=== PATIENT | male | born 1940 | race Hispanic/Latino ===

== ENCOUNTER 2020-05-10 00:25 | Emergency (ER) | payer OTHER ==
[2020-05-10] MEDS ORDERED: EPINEPHrine 1 MG/10 ML SYR IV ONE (00:26)
[2020-05-10] MEDS ORDERED: ATROPINE SULF 1 MG/10 ML SYR IV ONE ×2 (00:26→01:06)
[2020-05-10] MEDS ORDERED: Caclcium Chloride 10% INJ SYR IV ONE (00:26)
--- OUTSIDE RECORDS SUMMARY | 2020-05-10 00:36 | XMS REPORT | Continuity of Care Document ---
:1940 Author Organization [facility] t Address [address] [place] [address] Care Team Providers Name Role Phone Sheela Rosen MD Primary Care Physician Sheela Rosen MD Attending Clinician Shadi YU, Yari Tyler Attending Clinician Unavailable Johnathan HENRIQUEZ Attending Clinician Unavailable MARY WELLER Attending Clinician Unavailable Jericho MARQUEZ, Didier Attending Clinician Qi Champion MD Attending Clinician Anneliese Tellez MD Attending Clinician Jimmy Alvares MD Attending Clinician KELIN Admitting Clinician Unavailable Payers Payer Name Policy Type Policy Effective Date Expiration Date Sour ce Number HUMANA [id number] 2018 [place] MEDICAREHUMANA [facility] 00:00:00 Method ist GOLD PLUS [id number]/-PresentHMO Problems Condition Condition Condition Status Onset Resolution Last Treating Co mments Source Name Details Category Date Date Treatment Clinician Date Intractabl Intractabl Disease Active 2019-03 [place] e pain e pain 0-06 [facility] 00:00: st 00 Debility Debility Disease Active 2019-03 [place] 006 [facility] 00:00: st 00 Hyperlipid Hyperlipid Disease Active H [place] gabriel 11-24 Methodi 00:00: st 00 At low At low Disease Active [place] risk for risk for 07-02 Method i 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 07-02 [facility] cataract cataract 00:00: st of both of both 00 eyes eyes Prostate Prostate Disease Active [place] cancer cancer 11-01 [facility] metastatic metastatic 00:00: st to to 00 intraabdom intraabdom inal lymph inal lymph node node Allergies, Adverse Reactions, Alerts Allergy Allergy Status Severity Reaction(s) Onset Inactive Treating Comm ents Source Name Type Date Date Clinician Influenz Propensi Active Other (See Makes him [place] a Virus ty to Comments) 11-24 ill Method i Vaccines adverse 00:00: st reaction 00 s to drug No Known DA Active [facility] Allergie 11-23 [place] s 00:00: [facility] 00 are [place] Other Propensi Active Anaphylaxis Steroids H edx ty to 714 Methodi adverse 00:00: st reaction 00 s Methylpr Propensi Active Anaphylaxis H dex ednisolo ty to 11-28 Methodi ne adverse 00:00: st reaction 00 s to drug Family History Family Member Diagnosis Comments Start Date Stop Date Source Natural father Cancer [facility] thodist Natural mother Cancer [facility]odist Social History Social Habit Start Date Stop Date Quantity Comments Source History [facility] Meth odist Alcohol Std Drinks History [facility] Meth odist Alcohol Binge Sex Assigned At [facility] ethodist Tobacco use and 2020-02-24 2020-02-24 Never used [facility] ethodist exposure 00:00:00 00:00:00 Alcohol intake 2020-02-24 2020-02-24 Lifetime [facility] thodist 00:00:00 00:00:00 non-drinker (finding) History [facility] 2018-09-20 2018-09-20 1 [place] Meth odist Alcohol Frequency 00:00:00 00:00:00 Smoking Status Start Date Stop Date Source Former smoker 2020-02-24 00:00:00 2020-02-24 00:00:00 Aren Muslim Medications Ordered Filled Start Stop Current Ordering Indication Dosage Frequency Signature Comments Components Source Medication Medication Date Date Medication? Clinician (SIG) Name Name olmesartan 2019-03- Yes 20mg QD Take 1 [place] (Benicar) 04-26 tablet (20 Met hodi 20 MG 00:00: 23:59 mg total) st tablet 00 :00 by mouth daily. Linzess 72 2019-03 Yes Younger mcg capsule 2-16 Methodi 00:00: st 00 Xtandi 40 2019-03 Yes [place] mg chemo 2-03 [facility] capsule 00:00: st 00 ondansetron 2019-03 Yes DIS 1 T ON Younger ODT 1-18 THE TONGUE Methodi (ZOFRAN-ODT 00:00: Q 8 H PRN s t ) 8 MG 00 disintegrat ing tablet ibuprofen 2019-03 Yes 800mg Take 800 [address] (ADVIL) 800 1-11 mg by Methodi MG tablet 00:00: mouth. st 00 leuprolide, 2019-03 Yes Q180D Inject Doyle ston 6 month, 0-09 under the Method i (ELIGARD) 19:20: skin every st 45 mg (6 34 6 (six) month) months. injection lidocaine 2019-03- No 1{patch Q24H Place 1 [place] (LIDODERM) 0 11-07 } patch on Meth haile 5 % 00:00: 23:[address] 00 :00 daily for 30 days. Remove & Discard patch within 12 hours or as directed by HYDROcodone 2019-03 2020- No acute pain 1{tbl} Q6H Take 1 Younger -acetaminop 0-08 10-13 tablet by Me chanda hawkins (NORCO) 00:00: 23:[address] 5-325 mg 00 :00 every 6 per tablet (six) hours as needed for moderate pain for up to 5 days .acute pain. Max Daily Amount: 4 tablets amLODIPine Yes 10mg QD Take 1 [place] (NORVASC) - tablet (10 [place] 10 mg 00:00: mg total) st tablet 00 by mouth daily. amLODIPine 2019- No 10mg QD Take 1 [place] (NORVASC) 11-24 tablet (10 Met hodi 10 mg 00:00: 00:00 mg total) st tablet 00 :00 by mouth daily. amLODIPine 2.5mg QD Take 1 Doyle bello (NORVASC) 11-10 tablet Methodi 2.5 mg 00:00: 00:00 (2.[address] tablet 00 :00 total) by mouth daily. oxybutynin Yes TK 1 T PO Vikas cardona (DITROPAN) 10-08 Q 8 H PRN Meth ha[place] 5 MG tablet 00:00: FOR st 00 BLADDER SPASMS Immunizations Ordered Immunization Filled Immunization Date Status Commen ts Source Name Name Pneumococcal 2015-11-08 Completed [place] Polysaccharide 00:00:00 Muslim Pneumococcal 2014-05-02 Completed [place] Conjugate 13-Valent 00:00:00 Metho dist Vital Signs Vital Name Observation Time Observation Value Comments Source Body height 2020-02-24 09:27:00 162.6 cm Aren Kumar Body weight 2020-02-24 09:27:00 64.411 kg Aren Kumar BMI 2020-02-24 09:27:00 24.37 kg/m2 Younger Muslim Oxygen saturation in 2020-02-24 09:27:00 100 /min Younger Muslim Arterial blood by Pulse oximetry Systolic blood 2020-02-24 09:27:00 180 mm[Hg] Antonietta n Muslim pressure Diastolic blood 2020-02-24 09:27:00 54 mm[Hg] Josselyn on Muslim pressure Heart rate 2020-02-24 09:27:00 66 /min Aren Kumar Body temperature 2020-02-24 09:27:00 36 Rosanna Marilou ton Muslim Respiratory rate 2019-12-17 16:39:41 18 /min Marilou willingham Muslim Procedures Procedure Date / Time Performed Performing Clinician Sourc e PSA, TOTAL AND FREE 2020-01-28 00:00:00 Sheela Rosen on Muslim MRI CERVICAL SPINE W WO 2019-12-17 12:37:30 Vikas Summers CONTRAST Angy Edgar BASIC METABOLIC PANEL 2019-12-17 04:55:00 Marilou Summers HC COMPLETE BLD COUNT 2019-12-17 04:55:00 Marilou Summers W/AUTO DIFF Iadara Tala ESTIMATED GFR 2019-12-17 04:55:00 Aren Summers Me thodist Iadara Tala MRI THORACIC SPINE W WO 2019-12-16 17:29:26 Vikas Summers CONTRAST Iadara Tala MRI LUMBAR SPINE W WO 2019-12-16 17:29:02 Marilou Summers Muslim CONTRAST Iadara Tala TESTOSTERONE 2019-12-16 11:22:00 Alonzo Alvares PROSTATE SPECIFIC ANTIGEN 2019-12-16 11:22:00 Alonzo Alvares Muslim BASIC METABOLIC PANEL 2019-12-16 05:43:00 Marilou Summers Muslim Iadara Tala HC COMPLETE BLD COUNT 2019-12-16 05:43:00 Marilou Summers Muslim W/AUTO DIFF Iadara Tala ESTIMATED GFR 2019-12-16 05:43:00 Aren Summers Az thodist Iadara Tala HC COMPLETE BLD COUNT 2019-12-15 04:51:00 Phyllis Taylor W/AUTO DIFF BASIC METABOLIC PANEL 2019-12-15 04:51:00 Phyllis Taylor Muslim ESTIMATED GFR 2019-12-15 04:51:00 Phyllis Taylor LACTIC ACID LEVEL, SEPSIS 2019-12-14 20:45:00 Enrique Echavarria - NOW AND REPEAT 2X EVERY 3 HOURS COVID-19 QUALITATIVE PCR 2019-12-14 19:07:00 Enrique Echavarria LACTIC ACID LEVEL, SEPSIS 2019-12-14 18:50:00 Enrique Echavarria - NOW AND REPEAT 2X EVERY [address] LUMBAR SPINE W 2019-12-14 16:21:11 Enrique Echavarria CONTRAST URINALYSIS SCREEN AND 2019-12-14 15:38:00 Enrique Echavarria MICROSCOPY, WITH REFLEX TO CULTURE HC COMPLETE BLD COUNT 2019-12-14 15:07:00 Enrique Echavarria W/AUTO DIFF COMPREHENSIVE METABOLIC 2019-12-14 15:07:00 Enrique Echavarria PANEL LACTIC ACID LEVEL, SEPSIS 2019-12-14 15:07:00 Enrique Echavarria - NOW AND REPEAT 2X EVERY 3 HOURS ESTIMATED GFR 2019-12-14 15:07:00 Enrique Echavarria Az thodist CT ABDOMEN PELVIS W 2019-12-07 12:47:51 Alonzo Alvaresist CONTRAST LIPID PANEL 2019-11-25 09:22:00 Sheela Rosen ethodi HEMOGLOBIN A1C 2019-11-25 09:20:00 Sheela Rosen ethodist COMPREHENSIVE METABOLIC 2019-11-11 12:16:00 Sheela Rosen PANEL CBC WITH PLATELET AND 2019-11-11 12:16:00 Sheela Rosen DIFFERENTIAL Plan of Care Planned Activity Planned Date Details Comments Source Future Scheduled 2020-11-10 SHINGLES VACCINES Postponed from [facility] Muslim Test 00:00:00 (#1) [code = 07/24/1989 SHINGLES VACCINES (Insurance / (#1)] Financial) Future Scheduled 2020-06-07 INFLUENZA VACCINE Postponed from [employer] ton Muslim Test 00:00:00 [code = INFLUENZA 10/09/2019 VACCINE] (Patient Refused) Future Scheduled 1956 COVID-19 VACCINE [place] Muslim Test 00:00:00 (1 of 2) [code = COVID-19 VACCINE (1 of 2)] Encounters Start End Encounter Admission Attending Care Care Encounter Source Date/Time Date/Time Type Type Clinicians Facility Department ID 2020-02-24 2020-02-24 Outpatient ALVERTO [facility] [id number] [place] 00:00:00 00:00:00 SHEELA [address] 2019-12-20 2019-12-20 Outpatient MARY [facility] [id number] [place] 00:00:00 00:00:00 JANEE, [address] 2019-12-14 2019-12-17 Outpatient MARY [facility] [id number] [place] 00:00:00 00:00:00 JANEE, [address] 2019-12-07 2019-12-07 Outpatient PRAMOD [facility] [id number] [place] 00:00:00 00:00:00 ALONZO [address] 2019-11-25 2019-11-25 Outpatient ALVERTO [facility] [id number] [place] 00:00:00 00:00:00 SHEELA [address] 2019-11-11 2019-11-11 Outpatient ALVERTO [facility] [id number] [place] 00:00:00 00:00:00 SHEELA Fay Method i st Results Test Description Test Time Test Comments Results Result Sourc e Comments MRI Cervical [facility] [place] Spine W Wo [address] Contrast 13:43:27 - 12/17/2019 1:46 PM CDTEXAMINATION: MRI CERVICAL SPINE W WO CONTRASTCLINICAL HISTORY: possible infection cancerCOMPARISON: NoneTECHNIQUE: Multiplanar multisequence MRI examination was performed of the cervical spine with and without IV contrast.FINDINGS:Ali gnment is within normal limits. Vertebral body and disc heights are maintained. No suspicious osseous lesion or marrow edema. No cord signal identified. No pathologic enhancement.C1-C2: No significant spinal canal stenosis.C2-C3: No significant posterior disc disease or spinal canal stenosis. Patent bilateral neural foramina.C3-C4: No significant posterior disc disease or spinal canal stenosis. Mild left neural foraminal narrowing secondary to facet hypertrophy. Patent right neural foramen.C4-C5: No significant posterior disc disease or spinal canal stenosis. Patent bilateral neural foramina.C5-C6: No significant posterior disc disease or spinal canal stenosis. Patent bilateral neural foramina.C6-C7: No significant posterior disc disease or spinal canal stenosis. Patent bilateral neural foramina.C7-T1: No significant posterior disc disease or spinal canal stenosis. Patent bilateral neural foramina.No significant posterior disc disease, spinal canal or neural foraminal stenosis at other visualized levels.IMPRESSION: No evidence of infection or metastasis. No significant spinal canal or neural foraminal narrowing.[id number] Basic metabolic panel 2019-12-17 05:34:25 Test Item Value Reference Range Interpretation Comme nts Sodium (test code = 2951-2) 140 See_Comment [Automated message] The system which generated this result transmitted ref erence range: 135 - 148 mEq/L . The reference range was not u sed to interpret this result as normal/abnormal. Potassium (test code = 4.6 See_Comment [Aut omated message] The system 2823-3) which generated this result transmitted ref erence range: 3.5 - 5.0 mEq/L . The reference range was not u sed to interpret this result as normal/abnormal. Chloride (test code = 5-0) 103 See_Comment [Automated message] The system which generated this result transmitted ref erence range: 98 - 112 mEq/L. Th e reference range was not u sed to interpret this result as normal/abnormal. CO2 (test code = 2027-9) 26 See_Comment [A utomated message] The system which generated this result transmitted ref erence range: 24 - 31 mEq/L. The reference range was not used to interpret this result as drew l/abnormal. Anion gap (test code = 11 See_Comment [Aut omated message] The system 20967-3) which generated this result transmitted ref erence range: 7 - 15 mEq/L. The reference range was not used to interpret this result as drew l/abnormal. BUN (test code = 3094-0) 30 mg/dL 8-23 H Creatinine (test code = 0.94 mg/dL 0.7-1.2 2160-0) Glucose (test code = 2345-7) 100 mg/dL 65-99 H Calcium (test code = 38343-9) 8.9 mg/dL 8.8-10.2 Lab Interpretation (test code Abnormal = 52678-3) Younger MethodistEstimated [id number] 05:34:24 Test Item Value Reference Range Interpretation Comments Estimated GFR (test 76 mL/min/1.73 m2 [facility] Units code = 5488) InterpretationG 1 >=90 Normal or highG2 60-89 Mildly xnejhdvpnK6s 45-59 Mildly to mode rately iyttsotqfA7n 30-44 Moderately to severely decreasedG4 15-29 Severely decre asedG5 <15 Kidn ey failureThe eGFR was calculated cuauhtemoc lazo the Chronic Kidney Disease Epidemiology Co llaboration (CKD-EPI) equat ion. Interpretation is based on recommendations of the National Kidney Foundation-Kidn ey Disease Outcomes Qualit y Initiative (NKF-KDOQI) pub lished in 2014. Younger MethodistCBC with platelet and [id number] 05:03:50 Test Item Value Reference Range Interpretation Comments WBC (test code = 5.71 See_Comment [Automated message] 70545-6) The system [employer] generated this result transmit alen reference range : 4.50 - 11.00 k/ uL. The reference r dwight was not used to interpret this result as normal/abnormal . RBC (test code = 3.45 m/uL 4.4-6 L 92320-8) HGB (test code = 718-7) 10.8 g/dL 14-18 L HCT (test code = 4544-3) 31.2 % 41-51 L MCV (test code = 787-2) 90.4 fL 82-100 MCH (test code = 785-6) 31.3 pg 27-34 MCHC (test code = 786-4) 34.6 g/dL 31-37 RDW - SD (test code = 41.7 fL 37-55 27832-4) MPV (test code = 9.1 fL 8.8-13.2 28243-4) Platelet count (test 163 See_Comment [Autom ated message] code = 19370-9) The system [employer] generated this result transmit alen reference range : 150 - 400 k/uL. The reference range was not used to interpret this result as normal/abnormal . Nucleated RBC (test code 0.00 See_Comment [A utomated message] = 78484-9) The system [employer] generated this result transmit alen reference range : /100 WBC. The reference range was not used to interpret this result as normal/abnormal . Neutrophils (test code = 48.1 % 39-69 88769-7) Lymphocytes (test code = 34.5 % 25-45 87421-2) Monocytes (test code = 10.2 % 0-10 H 84262-6) Eosinophils (test code = 6.1 % 0-5 H 18349-7) Basophils (test code = 0.9 % 0-1 34239-5) Immature granulocytes 0.2 % 0-1 "Immat ure (test code = 04407-3) granul ocytes" (promyelocytes, myelocytes, metamyelocytes) Lab Interpretation (test Abnormal code = 88885-2) [place] MethodistProstate specific [id number] 20:12:33 Test Item Value Reference Range Interpretation Comments PSA (test code = 225.7 ng/mL 0-4 H The KELSEY 8 000 PSA 6737-1) immunoassay was used. Results obtaine d with different assay methods or kits should not be u sed interchangeably and may be differen t. Lab Interpretation Abnormal (test code = 14454-8) [facility] Lumbar Spine W Wo [id number] 17:54:53Hm Interface, Radiology Results 12/16/2019 5:58 PM CDTEXAMINATION: MRI LUMBAR SPINE W WOCONTRASTCLINICAL HISTORY: Back pain cancer or infection suspectedCOMPARISON: CT lumbar spine datedOctober 2019TECHNIQUE: Multiplanar multisequence pre and post contrast enhanced examination was performed of the Lumbar spine.FINDINGS:Numbering assumes that the last visualized functional disc to be L5-S1.There is normal lordosis. There is a inferior endplate pathologic fracture at L2 into a sclerotic bone lesion noted at L2 as seen on prior CT. There is a diffuse infiltrative lesion not much of the L2 vertebral body with enhancement and edema on postcontrast imaging. The lesion occupies 2.6 cm of AP dimension of the vertebral body centered towards the right of midline measuring 2.5 cm in transverse dimension and expands entire superior inferior length of the vertebral body. Another metastaticlesion is noted along the anterior inferior aspect of the L1 vertebral body slightly to the left of midline measuring 2 cm x 2 cm. There is a second focus of sclerosis in the right inferior anterior pedicle of L1. No other sclerotic metastatic lesions are identified in the lumbar spine.There are some areas of mild heterogenicity in the sacrum at S2 and within the sacroiliac consistent with sacral metastatic disease.Scattered cysts are noted in the right kidney. There are also some scattered periaortic lymph nodes which although most are not significantly enlarged in size but are rounded appearance concerning for metastatic disease on prior CT abdomen and pelvis. One of the lymph nodes is slightly enlarged in the left iliac chain which has a rounded appearance measuring 14 mm.The partially visualized spinal cord and the conus are unremarkable. Axial images through the disc spaces demonstrate the following:T12-L1: No significant posterior disc disease, spinal canal, lateral recess or neural foraminal stenosis.L1-L2: No significant posterior disc disease, spinal canal, lateral recess or neural for aminal stenosis.L2-L3: There is mild disc bulge without stenosis.L3-L4: There is minimal disc bulge with minimal narrowing of the inferior foramina. The canal is widely patent.L4-L5: There is mild discbulge with minimal narrowing of the inferior foramina. The canal is widely patent.L5-S1: No significant posterior disc disease, spinal canal, lateral recess or neural foraminal stenosis.Other than the areas of sclerosis in the right sacrum no other significant abnormalities identified.IMPRESSION: Findings confirm metastatic disease in the spine most prominent at L2 with there is a focal pathologic Schmorl's node into the center of the lesion. Other metastatic lesions at L1, S2 and the right sacral ala are also present. These are presumed to be prosthetic metastatic lesions in the patient with history of prostate cancer.Pathologic adenopathy is better appreciated on prior CT abdomen and pelvis withsome round lymph nodes in the periaortic region in a slightly enlarged lymph node in the left iliac chain region.HMRM-WPHYJWPHouston MethodistMRI Thoracic Spine W Wo [id number] 17:52:54Hm Interface, Radiology Results 12/16/2019 5:55 PM CDTEXAMINATION: MRI THORACIC SPINE W WO CONTRASTCLINICAL HISTORY: Bone neoplasm T-spine check for local recurrenceCOMPARISON: NoneTECHNIQUE: Multiplanar multisequence pre and post contrast enhanced examination was performed of the thoracic spine.FINDINGS:No vertebral fracture. No subluxation. T1 hypointense and T2 hyperintense metastasis involving the superior endplate of T10 measuring approximately 1.4 cm, involving the right pedicleand transverse process and bilateral lamina and spinous process of T10, inferior endplate of L1 measuring 1.6 cm, and involving the vertebral body of L2 measuring 2.5 cm with pathologic mild compression deformity. No other metastasis of the thoracic spine or visualized upper lumbar spine are identified..And sagittal sequences, there is elevated T2 signal of the lower cervical spinal cord, which is suspected to be artifactual. No abnormal enhancement.Hemangioma of the T7 vertebral body.No significantposterior disc disease, spinal canal, subarticular zone, or neural foraminal stenosis throughout thethoracic spine.IMPRESSION: 1. Metastasis involving T10, L1, and L2 as detailed above. There is a mild compression deformity of the inferior endplate of L2 which is pathologic.2. Possible elevated T2 signal of the lower cervical spinal cord, though this is suspected to be artifactual. No abnormal enhancement. Recommend MRI of the cervical spine with and without contrast for further assessment.3. No significant spinal canal or neural foraminal stenosis.Findings were discussed with and acknowledged by AIMEE Connors at 12/16/2019 5:52 PM who verbalized understanding. [facility]-[id number] 17:37:11 Test Item Value Reference Range Interpretation Comments Testosterone (test code = 2986-8) <10 193-740 L Lab Interpretation (test code = Abnormal 60707-4) [place] MethodistCOVID-19 qualitative [id number] 06:41:18 Test Item Value Reference Range Interpretation Comments Interpretation (test Negative results do code = 4158452) not preclude 2019-nCoV infection and should not be used as the sole basis for treatment or other patient management decisions. Negative results must be combined with clinical observations, patient history, and epidemiological information. COVID-19 qualitative Not-Detected Not-Detected PCR result (test code = 85806-2) COVID-19 qualitative See link below for C ase Number: PCR (test code = PDF Lab Report [id number]) [place] MethodistLactic acid level, SEPSIS - Now and repeat 2x every 3 hours 2019-12-14 21:13:57 Test Item Value Reference Range Interpretation Comments Lactic acid (test code = 73814-5) 1.5 mmol/L 0.5-2.2 [place] MethodistCT Lumbar Spine W [id number] 16:36:14Hm Interface, Radiology Results 12/14/2019 4:39 PM CDTEXAMINATION: CT LUMBAR SPINE W CONTRASTCLINICAL HISTORY: acute on chronic lumbar back pain hx of mets from prostate cancerCOMPARISON:CT abdomen pelvis 12/07/2019, 04/19/2019.TECHNIQUE: Axial noncontrast enhanced images of lumbar spine was performed with coronal sagittal reconstruction algorithms. CT imaging was performed with iterative reconstruction technique and/or automated exposure control to reduce radiation dose.FINDINGS:There are 5 non-rib bearing lumbar type vertebrae, the lowest labeled L5 in this report as identified by the lumbosacral angle and iliolumbar ligaments. There is similar appearing sclerosis of the L1 and L2 vertebral bodies when compared with the prior CT from 12/07/2019, however is new when compared to more remote prior from 04/19/2019. No displaced fractures identified. Vertebral body heights are preserved.Alignment is within normal limits. No subluxation. Limited visualization of the soft tissues revealssimilar bulky necrotic lymphadenopathy along the left pelvic sidewall and right retroperitoneum. Forexample the largest left pelvic sidewall mass measures 5.0 x 4.0 cm in axial dimensions and the right retroperitoneal lymph node measures 4.1 x 3.7 cm. No hydronephrosis.Axial images through the disc spaces demonstrate the following:L1-L2: No significant posterior disc disease, spinal canal, subarticul ar zone, or neural foraminal stenosis.L2-L3: No significant posterior disc disease, spinal canal, subarticular zone, or neural foraminal stenosis.L3-L4: No significant posterior disc disease, spinal canal, subarticular zone, or neural foraminal stenosis.L4-L5: No significant posterior disc disease, spinal canal, subarticular zone, or neural foraminal stenosis.L5-S1: No significant posterior disc disease, spinal canal, subarticular zone, or neural foraminal stenosis.Evaluation of other visualized levels demonstrates no significant posterior disc disease, spinal canal, subarticular zone, or neural foraminal stenosis.IMPRESSION:1.Similar appearing subtle sclerosis of the L1 and L2 vertebral bodies when compared with the prior CT from 12/07/2019, but new when compared to more remote prior from 04/19/2019, highly suspicious for osseous metastatic disease. No pathologic fractures or spinal canal narrowing.2.Stable appearing bulky necrotic right retroperitoneal and left pelvic sidewall lymphadenopathy.[facility]-[id number] MethodistUrinalysis screen and microscopy, with reflex to [id number] 16:08:19 Test Item Value Reference Range Interpretation Comments Specimen site (test Clean catch code = 7726905) Color, UA (test code = Yellow 5778-6) Appearance, UA (test Clear code = 5767-9) Specific gravity, UA 1.017 1.001-1.035 (test code = 5811-5) pH, UA (test code = 7.0 5.0-8.5 5803-2) Protein, UA (test code 2+ Negative A = 37402-5) Glucose, UA (test code Negative Negative = 89425-8) Ketones, UA (test code Negative Negative = 2514-8) Bilirubin, UA (test Negative Negative code = 5770-3) Blood, UA (test code = Negative Negative 5794-3) Nitrite, UA (test code Negative Negative = 5802-4) Urobilinogen, UA (test <2.0 <2.0 code = 63110-1) Leukocyte esterase, UA Negative Negative (test code = 5799-2) WBC, UA (test code = 1 See_Comment [Autom ated 5821-4) message] The sy stem which generated this result transmitted reference range : 0 - 5 /HPF. The reference range was not used to interpret this result as normal/abnormal . RBC, UA (test code = 1 See_Comment [Autom ated 67017-5) message] The sy stem which generated this result transmitted reference range : 0 - 5 /HPF. The reference range was not used to interpret this result as normal/abnormal . Yeast, UA (test code = None seen 94206-6) Yeast with None seen pseudohyphae, UA (test code = 89271-3) Lab Interpretation Abnormal (test code = 56748-6) [facility] [id number] 15:38:41 Test Item Value Reference Range Interpretation Comments Sodium (test code = 135 See_Comment [Automa alen message] 8881-2) The system [employer] generated this result transmit alen reference range : 135 - 148 mEq/L. Th e reference range was not used to interpret this result as normal/abnormal . Potassium (test code = 5.0 See_Comment [Aut omated message] 5553-3) The system [employer] generated this result transmit alen reference range : 3.5 - 5.0 mEq/L. Th e reference range was not used to interpret this result as normal/abnormal . Chloride (test code = 99 See_Comment [Auto mated message] 0) The system [employer] generated this result transmit alen reference range : 98 - 112 mEq/L. Th e reference range was not used to interpret this result as normal/abnormal . CO2 (test code = 26 See_Comment [Automated message] 2027-11) The system [employer] generated this result transmit alen reference range : 24 - 31 mEq/L. The reference range was not used to interpret this result as normal/abnormal . Anion gap (test code = 10 See_Comment [Aut omated message] 51303-5) The system [employer] generated this result transmit alen reference range : 7 - 15 mEq/L. The reference range was not used to interpret this result as normal/abnormal . BUN (test code = 29 mg/dL 8-23 H 3094-0) Creatinine (test code = 0.81 mg/dL 0.7-1.2 2160-0) Glucose (test code = 105 mg/dL 65-99 H 2345-7) Calcium (test code = 9.0 mg/dL 8.8-10.2 58381-5) Protein (test code = 6.9 g/dL 6.3-8.3 -[place] n 2885-2) 4.6-7.0 g/ dL1 week 4.4-7.6 g/dL7 months-1year 5.1-7.3 g/dL1 -2 years 5.6-7.5 g/dL>3 years 6.0-8.0 g/dL18- 150 6.3-8.3 g/dL Albumin (test code = 3.7 g/dL 3.5-5 1751-7) A/G ratio (test code = 1.2 0.7-3.8 1759-0) Alkaline phosphatase 89 U/L 40-129 (test code = 6768-6) AST (test code = 28 U/L 10-50 1920-8) ALT (test code = 21 U/L 5-50 1742-6) Total bilirubin (test <0.3 0-1.2 code = 1975-2) Lab Interpretation Abnormal (test code = 05919-1) [facility] Abdomen Pelvis W [id number] 13:09:39Hm Interface, Radiology Results 12/07/2019 1:12 PM CDTEXAMINATION: CT ABDOMEN PELVIS W CONTRASTCLINICAL HISTORY: C61 Malignant neoplasm of prostate, [id number]: Multiple axial images ofthe abdomen and pelvis were obtained following intravenous administration of iodinated contrast. Sagittal and coronal computerized reformatted images were also obtained.CT imaging was performed with iterative reconstruction technique and/or automated exposure control to reduce radiation dose.COMPARISON: None.FINDINGS:LUNG BASES:The lung bases are free of acute disease.ABDOMEN:Liver: The liver is normal. No focal mass.Gallbladder/Biliary: The gallbladder is normal. There is no evidence of intra or extrahepatic biliary ductal dilatation.Adrenal Glands: The adrenal glands are unremarkable.Spleen: Thespleen is not enlarged.Pancreas: The pancreas is unremarkable.Kidneys: Few right renal cysts measuring up to 2.5 cm.Bowel: No bowel obstruction or inflammatory changes. No CT evidence of appendicitis.Va scular: Calcification of the abdominal aorta is noted. No aneurysm.Nodes: Bilateral pelvic and iliacchain lymphadenopathy with interval increase in size of the nodes. For example, largest left pelvic node measures 4.0 x 4.9 cm compared to 2.6 x 3.0 cm previously. Some enlarged lymph nodes are new compared to prior exam, for example left periaortic lymph node below the level of the renal vasculature (series 3 image 50).Ascites/fluid collections: No ascites or fluid collections.Other: None.PELVIS:No mass, fluid collection or significant adenopathy. Heterogeneous and irregular appearing prostate is grossly stable compared to prior exam.MUSCULOSKELETAL: No suspicious osseous lesions. IMPRESSION: Interval progression of metastatic lymphadenopathy in the abdomen and pelvis as noted above.[id number] MethodistHemoglobin A1c 2019-11-26 06:36:00 Test Item Value Reference Range Interpretation Comments Hemoglobin A1C 5.2 See_Comment For the purpo se of (test code = screening for t he 4548-4) presence ofdiab etes: <5.7% Consistent with the absence of diabetes5.7-6.4 % Consistent with increased risk for diabetes (prediabetes)> or =6.5% Consiste nt with diabetes T his assay result is consistent with a decreased risko f diabetes. Curre ntly, no consensus ex ists regarding use ofhemoglobin A1 c for diagnosis of di abetes in children. According to [place] Diabetes Associ ation (ADA)guidelines , hemoglobin A1c <7.0% represents optimalcontrol in non- di abetic patients. Differentmetric s may apply to specif ic patient populat ions. Standards of Me dical Care in Diabetes(ADA). [Automated mess age] The system [employer] generated this result transmitted ref erence range: <5.7 % o f total Hgb. The reference range was not used to int erpret this result as normal/abnormal . KAYLA (test code = FASTING:YESFASTING KAYLA) : YES RAC (test code = Performing RAC) Organization Information: [id number] Address: [address] [place] [id number] Director: Colton Cao [place] [facility] [id number] 04:40:00 Test Item Value Reference Range Interpretation Comments Cholesterol, total 245 mg/dL <200 H (test code = 2093-3) HDL cholesterol 56 mg/dL See_Comment [Automated (test code = 2084-) message ] The system which generated this result transmitted reference range : > OR = 40. The reference range was not used to interpret this result as normal/abnormal . Triglycerides (test 101 mg/dL <150 code = 2571-8) LDL cholesterol 168 mg/dL (calc) H Reference ra nge: calculated (test <100 Desira ble code = 01147-6) range <100 m g/dL for primary prevention; <7 0 mg/dL for patients with C HD or diabetic patients with > or = 2 CHD risk factors. LDL-C is now calculated using the Sam-Angely calculation, which is a validated novel method providin g better accuracy than the Friedewald equation in the estimation of LDL-C. Sam S S et al. CHETAN. 2013;310(19): 7422-4613 (http://educati on .[employer] .com/faq/CDB087 ) Cholesterol/HDL 4.4 See_Comment [Automated ratio (test code = message] The 9830-1) system which generated this result transmitted reference range : <5.0 (calc). Th e reference range was not used to interpret this result as normal/abnormal . Non-HDL cholesterol 189 See_Comment H For yoseph ents with (test code = diabetes plus 1 88213-3) major ASCVD ris k factor, treatin g to a non-HDL-C goal of <100 mg/dL (LDL-C of <70 mg/dL) is considered a therapeutic option. [Automated message] The system which generated this result transmitted reference range : <130 mg/dL (calc). The reference range was not used to interpret this result as normal/abnormal . KAYLA (test code = FASTING:NOCOLLECTI KAYLA) ON KIT GIVEN TO PATIENT. PATIENT ADVISED TO RETURN.FASTING: NO RAC (test code = Performing RAC) Organization Information: Site ID: [id number] Name: [facility] Address: [address] [place] [id number] Director: Colton Cao Lab Interpretation Abnormal (test code = 65652-5) [place] [facility] [id number] 16:11:00 Test Item Value Reference Range Interpretation Comments SODIUM (test code 141 mmol/L 136-145 N = NA) POTASSIUM (test 4.2 MMOL/L 3.6-5.2 N code = K) CHLORIDE (test 105 MMOL/L 98-110 N code = CL) CARBON DIOXIDE 25 mEq/L 24-32 N (test code = CO2) GLUCOSE (test code 92 mg/dL 70-110 N = GLU) BLOOD UREA 21 mg/dL 7-18 H NITROGEN (test code = BUN) GLOMERULAR >=60 max >60 The estimated FILTRATION RATE estimate glomerular (test code = GFR) filtration rate is computed usingpatient ra ce, age (>18), sex, and serum creatinin e. If anyof the neede d data elements a re missing the Laboratory stepan ot compute an estimation of t he glomerular filtration rate . CREATININE (test 0.77 mg/dL 0.60-1.30 N code = CREAT) CALCIUM (test code 9.0 mg/dL 8.6-10.3 N = CA) BASIC METABOLIC [id number] 16:06:00 Test Item Value Reference Range Interpretation Comments SODIUM (test code = NA) 141 mmol/L 136-145 N POTASSIUM (test code = K) 4.2 MMOL/L 3.6-5.2 N CHLORIDE (test code = CL) 105 MMOL/L 98-110 N CARBON DIOXIDE (test code = CO2) 25 mEq/L 24-32 N GLUCOSE (test code = GLU) 92 mg/dL 70-110 N BLOOD UREA NITROGEN (test code = mg/dL 7-18 BUN) GLOMERULAR FILTRATION RATE (test >60 code = GFR) CREATININE (test code = CREAT) mg/dL 0.60-1.30 CALCIUM (test code = CA) 9.0 mg/dL 8.6-10.3 N PROTHROMBIN [id number] 15:27:00 Test Item Value Reference Range Interpretation Comments PROTHROMBIN TIME 11.7 SECONDS 9.5-12.9 N PATIENT (test code = PTP) INTERNATIONAL NORMAL 1.0 0.85-1.15 N The INR is to be used RATIO (test code = only for monitoring INR) ORAL ANTICOAGULANTTH ERAPY. Indicati on INR Value1. Prophylaxis/jennifer atment of: Venous Thrombosis, Pul monary Embolism 2.0 - 3.02. Preventi on of systemic emboli sm from: Tiss ue heart valves 2.0 - 3.0 Acute myocardial infa rction (to present systemic emboli sm)* 2.0 - 3.0 Valvular heart disease 2.0 - 3.0 Atrial fibrillation 2.0 - 3.03. Education Program Associate al prosthetic valv es (high risk) 2.5 - 3.5 * If oral anticoagulant t herapy is elected to preventrecurren t myocardial infa rction, an INR of 2.5-3 .5 isrecommended, consistent with Food and Drug Administrationr ecommen dations. CBC W/O [id number] 15:17:00 Test Item Value Reference Range Interpretation Comments WHITE BLOOD CELL (test code = WBC) 6.67 K/mm3 5.0-12.0 N RED BLOOD CELL (test code = RBC) 4.46 M/mm3 4.70-6.10 L HEMOGLOBIN (test code = HGB) 13.7 G/DL 14.0-18.0 L HEMATOCRIT (test code = HCT) 40.4 % 37.0-49.0 N MEAN CELL VOLUME (test code = MCV) 91 fL 80-94 N MEAN CELL HGB (test code = MCH) 30.7 PGM 27-31 N MEAN CELL HGB CONCENTRATION (test 33.9 G/DL 33-37 N code = MCHC) RED CELL DISTRIBUTION WIDTH (test 11.9 % 11.6-16.2 N code = RDW) PLATELET COUNT (test code = PLT) 189 K/mm3 130-400 N CHEMISTRY 8 [id number] 15:12:00 Test Item Value Reference Range Interpretation Comments SODIUM POC (test code = NAP) mmol/L 138-146 N POTASSIUM POC (test code = KP) mmol/L 3.5-4.9 N CHLORIDE POC (test code = CLP) mmol/L 98-109 CO2 POC (test code = CO2P) mmol/L 24-29 IONIZED CALCIUM POC (test code = mmol/L 1.10-1.32 N CAIP) GLUCOSE POC (test code = GLUP) MG/DL 70-105 N BUN POC (test code = BUNP) mg/dL 8-26 N CREATININE POC (test code = CREATP) mg/dL 0.6-1.3 N GLOMERULAR FILTRATION RATE POC (test 81 42-98 N code = GFRP) CHEMISTRY 8 [id number] 15:12:00 Test Item Value Reference Range Interpretation Comments SODIUM POC (test code = NAP) 142 mmol/L 138-146 N POTASSIUM POC (test code = KP) 4.3 mmol/L 3.5-4.9 N CHLORIDE POC (test code = CLP) 105 mmol/L 98-109 N CO2 POC (test code = CO2P) 26 mmol/L 24-29 N IONIZED CALCIUM POC (test code = 1.13 mmol/L 1.10-1.32 N CAIP) GLUCOSE POC (test code = GLUP) 94 MG/DL 70-105 N BUN POC (test code = BUNP) 20 mg/dL 8-26 N CREATININE POC (test code = 0.9 mg/dL 0.6-1.3 N CREATP) GLOMERULAR FILTRATION RATE POC 81 42-98 N (test code = GFRP)
[2020-05-10] MEDS ORDERED: NOREPINEPHRINE 4mg/D5W 250mL 4 MG/250 ML BAG IV ONE (00:45)
[2020-05-10] MEDS ORDERED: DOPAMINE/D5W 0 MG/0 ML BAG IV ONE (00:52)
[2020-05-10] MEDS ORDERED: PIPER/TAZO/NS 3.375gm 3.375 GM/100 ML BAG ONE (00:55)
[2020-05-10 00:57] LABS: Protime INR 0.95
[2020-05-10 00:58] LABS: Absolute Lymphocytes (CBC) 3.1 K/uL (0.7-4.9); Basophils % 0.6 % (0-1.3); Hematocrit 36.6 % (39.6-49.0); Lymphocytes % 27.1 % (15.3-44.8); MPV 8.2 fL (7.6-11.3); RBC Red Blood Cell Count 3.66 M/uL (4.33-5.43)
[2020-05-10] MEDS ORDERED: NA CHLORIDE 0.9% 1,000 ML ONE (01:02)
[2020-05-10] MEDS ORDERED: DOPAMINE/D5W 400 MG/250 ML BAG IV ONE (01:02)
[2020-05-10] MEDS ORDERED: FAMOTIDINE 20 MG/2 ML VIAL IV ONE (01:02)
[2020-05-10 01:21] LABS: ALT/SGPT 36 U/L (12-78); Albumin 2.7 g/dL (3.4-5.0); Alkaline Phosphatase 71 U/L (45-117); BUN Blood Urea Nitrogen 33 mg/dL (7-18); Bicarbonate 20 mmol/L (21-32); Bilirubin Direct < 0.1 mg/dL (0-0.2); Bilirubin Total 0.2 mg/dL (0.2-1.0); Glucose Level 278 mg/dL (74-106); NT PRO-BNP 4096 pg/mL (<450); Protein, Total 6.2 g/dL (6.4-8.2); Sodium Level 141 mmol/L (136-145)
[2020-05-10 01:22] LABS: AST/SGOT 26 U/L (15-37); Potassium 3.4 mmol/L (3.5-5.1)
[2020-05-10 01:25] LABS: Troponin (Emerg Dept Use Only) 0.57 ng/mL (0.0-0.045)
[2020-05-10] MEDS ORDERED: D5W 250 ML IV ONE (01:29)
[2020-05-10] MEDS ORDERED: EPINEPHrine 1 MG/10 ML SYR ONE (01:29)
--- NOTE | 2020-05-10 01:33 | ER ---
Nurse's Notes [facility] Name: Jeramy Schulz Age: 79 yrs Sex: Male : 1940 Arrival Date: 05/10/2020 Time: 00:32 Bed 3 Private MD: Diagnosis: Chest pain, unspecified;Dyspnea;Respiratory failure, unspecified;Cardiac arrest Presentation: 05/10 00:20 Chief complaint: EMS states: patient complaint of chest pain, and shortness of breath rr5 went to [facility]. he became unresponsive while en route we intubated him ET 7.5 23cm HR went down ketamine 200/IV, fentanyl 50mcg/IV, amiodarone 150mg bolus and 150mg, drip shock 70 joules twice for wide VTACH. HR went to junctional rhythm 55bpm, SPO2 100% BP on systolic 190-170's palpable radial pulse. 00:20 Coronavirus screen: Client denies travel out of the [place] in the last 14 days. Ebola rr5 Screen: Unable to complete the Ebola screening because:. Initial Sepsis Screen:. Onset of symptoms was May 10, 2020. 00:20 Method Of Arrival: EMS: [facility] rr5 00:20 Acuity: ROSITA 1 rr5 00:20 Care prior to arrival: Assisted ventilation, Oral intubation, Medication(s) given: rr5 magnesium 2 G/IV given by EMS IV initiated. 20 GA, in the left antecubital area, Oxygen administered. via AMBU bag. 00:50 Compressions began at 00:50. rr5 Historical: - Allergies: 00:50 Unable to obtain; rr5 - Home Meds: 00:50 amlodipine oral [Active]; Xtandi oral oral [Active]; rr5 - PMHx: 00:50 prostate cancer stage 4; metastatic bone cancer; rr5 00:50 Hypertension; rr5 - Family history:: not pertinent. Screenin:29 Abuse screen: Denies threats or abuse. Nutritional screening: No deficits noted. ea Tuberculosis screening: No symptoms or risk factors identified. Fall Risk IV access (20 points). Assessment: 00:53 CPR assessment: intubated, Ambu ventilation, pulses absent w/ compressions. rr5 00:53 Cardiac rhythm is PEA. rr5 00:55 CPR assessment: intubated, Ambu ventilation, pulses absent w/ compressions. Cardiac rr5 rhythm is PEA. 00:57 CPR assessment: intubated, Ambu ventilation, pulses absent w/ compressions. Cardiac rr5 rhythm is PEA. 00:59 CPR assessment: intubated, Ambu ventilation, pulses absent w/ compressions. Cardiac rr5 rhythm is PEA. Cardiac rhythm is PEA. 01:02 CPR assessment: intubated, Ambu ventilation, pulses absent w/ compressions. Cardiac rr5 rhythm is PEA. 01:04 CPR assessment: intubated, Ambu ventilation, pulses absent w/ compressions. CPR rr5 assessment: intubated, Ambu ventilation. Cardiac rhythm is PEA. Cardiac rhythm is pulse palpated,HR 30 bpm Atropine sulfate 1mg/IV and dopamine increased to 20mcg/min. 01:10 CPR assessment: intubated, Ambu ventilation, pulses absent w/ compressions. Cardiac rr5 rhythm is asystole. 01:12 CPR assessment: intubated, Ambu ventilation, pulses absent w/ compressions. Cardiac rr5 rhythm is PEA. 01:14 CPR assessment: intubated, Ambu ventilation, pulses absent w/ compressions. Cardiac rr5 rhythm is asystole. 01:20 CPR assessment: intubated, Ambu ventilation, pulses absent w/ compressions. Cardiac rr5 rhythm is asystole. 01:23 Cardiac rhythm is asystole. rr5 01:54 Reassessment: . ea 02:25 Reassessment: LJ arrived. rr5 03:15 Reassessment: [facility] coordinated, awaiting for the customer experience specialist. rr5 03:44 Reassessment: judge fischer signed the form. rr5 Vital Signs: 00:20 BP 53 / 39; Pulse 53; Resp 16; Pulse Ox 95% ; ea 00:40 BP 67 / 43; Pulse 54; Pulse Ox 92% on ETT vent; rr5 00:49 Pulse 25; rr5 00:50 Pulse 0; rr5 01:01 Temp 98(R); rr5 01:14 BP 43 / 29; Pulse 62; Weight 70 kg; Height 5 ft. 6 in. (167.64 cm); rr5 01:14 BP 40 / 22; rr5 01:20 Pulse 0; rr5 01:23 Pulse 0; Resp 0; rr5 01:14 Body Mass Index 24.91 (70.00 kg, 167.64 cm) rr5 00:49 atropine 1mg/IV given rr5 00:50 CPR started follow ACLS protocol rr5 ED Course: 00:20 Patient has correct armband on for positive identification. Placed in gown. Bed in low rr5 position. Side rails up X2. 00:20 pipeline dispatch operator on. Pulse ox on. NIBP on. rr5 00:22 Arm band placed on right wrist. rr5 00:30 Inserted saline lock: 20 gauge in right antecubital area, using aseptic technique. ea Blood collected. 00:32 Patient arrived in ED. ea 00:35 Harman Sun MD is Attending Physician. franklin 00:40 Maintain EMS IV. Dressing intact. Good blood return noted. Site clean \T\ dry. Gauge \T\ ea site: 22G LAC. 00:41 Davion Dowd RN is Primary Nurse. rr5 00:45 Assisted provider with central line placement. Set up central line tray. Triple lumen rr5 line placed in right femoral. Line placed by Duarte BLANTON-Cora Placement verified by blood return, Dressed with Tape, Tegaderm, Blood was collected. Patient tolerated well. Before procedure, did Practitioner(s) obtain informed consent? No. Patient \T\ family education about procedure, CLABSI prevention and S/S of infection? No. Time-out/Briefing performed prior to start of procedure? Yes. Was handwashing/sanitizing done immediately prior to procedure? Yes. Was patient positioned to in a way to prevent air embolism? Yes. Was procedure site sterilized? Yes, with chlorhexidine. Was the site allowed to dry? Yes. Was local anesthetic and/or sedation utilized? N/A. During the procedure, did the Practitioner(s) maintain a sterile field? Yes. Were unused ports clamped during insertion? Yes. Was blood aspirated from each lumen? Yes. After the procedure, did the Practitioner(s) clean the site and apply a sterile dressing? Yes. 01:19 Patient was paced with an external pacer. Rate set at 60 in beats/min. Current set to rr5 80 milliamps, Capture was not noted. hr from 40 went to 0 did not capture the rhythm. 01:30 Triage completed. rr5 01:30 Harman Sun MD is Pronouncing Provider. franklin Administered Medications: Discontinued: Dopamine drip 5 mcg/kg/min - (DOPamine 400 mg, D5W 250 ml) IV at calculated rate continuous; Titrate to keep systolic blood pressure greater than 90mmHg 00:40 Drug: Dopamine drip 5 mcg/kg/min - (DOPamine 400 mg, D5W 250 ml) Route: IV; Rate: rr5 calculated rate; Site: left antecubital; 01:23 Follow up: Response: Other; rr5 01:23 Follow up: Response: Other; IV Status: Order to discontinue infusion; patient rr5 00:42 Drug: NS 0.9% 1000 ml Route: IV; Rate: 1 bolus; Site: left antecubital; rr5 01:23 Follow up: Response: Other; IV Status: Order to discontinue infusion; rr5 00:51 Drug: EPINEPHrine 0.1mg/mL 1:10,000 1 mg Route: IVP; Site: right femoral; rr5 00:52 Drug: Sodium Bicarbonate 1 amp Route: IVP; Site: right femoral; rr5 00:55 Drug: EPINEPHrine 0.1mg/mL 1:10,000 1 mg Route: IVP; Site: right femoral; rr5 00:55 Drug: Sodium Bicarbonate 1 amp Route: IVP; Site: right femoral; rr5 00:58 Drug: EPINEPHrine 0.1mg/mL 1:10,000 1 mg Route: IVP; Site: right femoral; rr5 01:02 Drug: Atropine 1 mg Route: IVP; Site: right femoral; rr5 01:02 Drug: EPINEPHrine 0.1mg/mL 1:10,000 1 mg Route: IVP; Site: right femoral; rr5 01:09 Drug: Atropine 1 mg Route: IVP; Site: right femoral; ea 01:10 Drug: EPINEPHrine 0.1mg/mL 1:10,000 1 mg Route: IVP; Site: right femoral; rr5 01:14 Drug: Epinephrine Drip - (EPINEPHrine (PF) 4 mg, Sodium Chloride 0.9% 250 ml) Route: rr5 IV; Rate: 5 mcg/kg/min; Site: right femoral; 01:14 Follow up: BP 40 / 22; Rate change 10 mcg/min rr5 01:23 Follow up: Response: Other; IV Status: Order to discontinue infusion; rr5 03:41 Not Given (Patient ): Zosyn 3.375 grams IVPB once over 60 mins; (mix in NS 100 rr5 mL) 03:41 Not Given (Patient ): Aspirin Suppository 300 mg NE once rr5 Point of Care Testing: Blood Glucose: 00:59 Blood Glucose: 264 mg/dL; rr5 Ranges: Intake: Outcome: 02:13 Outcome Patient rr5 02:13 Patient : Time of 01:23 Pronounced by Harman Sun MD 02:13 Condition: 03:51 Patient left the ED. ea Signatures: Harman Sun MD MD cha Antunez, Elena RN RN Davion Herbert, RN RN rr5 Corrections: (The following items were deleted from the chart) 01:44 00:49 Pulse 25bpm; rr5 rr5 02:33 01:50 BP 40 / 22; Rate change 10 mcg/min rr5 rr5
--- NOTE | 2020-05-10 01:33 | EDPHYS ---
Physician Documentation [facility] Name: Jeramy Schulz Age: 79 yrs Sex: Male : 1940 Arrival Date: 05/10/2020 Time: 00:32 Bed 3 Private MD: ED Physician Harman Sun HPI: 05/10 00:41 This 79 yrs old Male presents to ER via Unassigned with complaints of franklin intubated port captain, chest pain and sob. 00:42 The patient has shortness of breath at rest. Onset: The symptoms/episode began/occurred franklin just prior to arrival. Duration: The symptoms are continuous, and are markedly worse than the original presentation, intubated port captain. The patient's shortness of breath has no apparent modifying factors. The patient or guardian reports chest pain that is located primarily in the anterior chest wall, bilaterally. intubated port captain, [place] [facility]. Historical: - Allergies: 00:50 Unable to obtain; rr5 - Home Meds: 00:50 amlodipine oral [Active]; Xtandi oral oral [Active]; rr5 - PMHx: 00:50 prostate cancer stage 4; metastatic bone cancer; rr5 00:50 Hypertension; rr5 - Family history:: not pertinent. ROS: 00:44 Unable to obtain ROS due to patient is on ventilator, HX OF CP AND SOB WHEN PRESENTED franklin TO [facility], INTUBATED AND SENT TO OUR ER, HYPOTENSIVE. 00:49 Constitutional: Negative for fever, chills, and weight loss, Eyes: Negative for injury, franklin pain, redness, and discharge. Exam: 00:44 Head/Face: Normocephalic, atraumatic. franklin 00:44 Cardiovascular: Rate: bradycardic, Rhythm: regular, Pulses: Pulses are 3+ in bilateral radial, brachial, femoral, popliteal, posterior tibial and and dorsalis pedis arteries.. Heart sounds: normal, Edema: is not appreciated, JVD: is not appreciated. 00:44 Respiratory: Breath sounds: rales, that are moderate, are heard in the right middle lobe, right lower lobe, right posterior middle lobe and right posterior lower lobe, bronchial sounds, that are mild, INTUBATED. 01:33 ECG was reviewed by the Attending Physician. [facility] Vital Signs: 00:20 BP 53 / 39; Pulse 53; Resp 16; Pulse Ox 95% ; ea 00:40 BP 67 / 43; Pulse 54; Pulse Ox 92% on ETT vent; rr5 00:49 Pulse 25; rr5 00:50 Pulse 0; rr5 01:01 Temp 98(R); rr5 01:14 BP 43 / 29; Pulse 62; Weight 70 kg; Height 5 ft. 6 in. (167.64 cm); rr5 01:14 BP 40 / 22; rr5 01:20 Pulse 0; rr5 01:23 Pulse 0; Resp 0; rr5 01:14 Body Mass Index 24.91 (70.00 kg, 167.64 cm) rr5 00:49 atropine 1mg/IV given rr5 00:50 CPR started follow ACLS protocol rr5 Procedures: 03:04 Central Line: the site was prepped with Betadine, a triple lumen catheter was inserted, franklin in the right femoral vein, in 1 attempts. placement was verified, by blood return, the site was dressed with using sterile technique, the patient tolerated the procedure, well. MDM: 00:46 Differential diagnosis: CHF exacerbation, acute myocardial infarction, acute franklin pericarditis, coronary artery disease congestive heart failure pancreatitis, pneumonia, pulmonary embolus, thoracic aortic disection, unstable angina, Myocardial Infarction pneumonia, pulmonary edema, Pulmonary Embolism Unstable Angina. Antibiotic administration: ZOSYN. Differential Diagnosis sepsis. HEART Score: History: Slightly Suspicious (0), ECG: Significant ST-deviation (2), Age: > or = 65 years (2), Risk Factors: > or = 3 Risk factors for atherosclerotic disease (2), [Hypercholesterolemia] [Hypertension] [+ Family HX] Troponin: < or = 1 x Normal Limit (0). The patient was given aspirin in the Emergency Department. The patient's Wells Deep Vein Thrombosis Score was calculated as follows: the patient is receiving ongoing or pallative cancer treatment (1.0 Pts) Total Score: 1 to 2 points. This patient was found to be at moderate risk for a deep vein thrombosis by using the Well's assessment criteria Malignancy Total Score: 0-2 Pts- Low Risk. Data reviewed: vital signs, nurses notes, EMS record, diagnostic data from outside facility, old medical records, lab test result(s), EKG, radiologic studies, CT scan, plain films. 01:29 Patient medically screened. franklin 03:02 The patient's pulmonary embolism risk score was calculated as follows: Total Score: 0-2 franklin points. This patient was found to be at low risk for a pulmonary embolism by using the Well's assessment criteria malignancy Total Score: 0-2 points. This patient was found to be at low risk for a pulmonary embolism by using the Well's assessment criteria. JULIETA Risk Score: 1 - patient's age is greater or equal to 65 years, 1 - Three or more CAD risk factors, 1 - Elevated Cardiac Markers, TOTAL SCORE = 3. Immunization status: Pneumococcal vaccine: Influenza vaccine: Data interpreted: clinical research monitor: rate is 53 beats/min, rhythm is irregular, with multifocal PVCs, Pulse oximetry: on ventilator. 05/10 00:33 Order name: Basic Metabolic Panel 05/10 00:33 Order name: CBC with Diff 05/10 00:33 Order name: LFT's 05/10 00:33 Order name: Magnesium 05/10 00:33 Order name: NT PRO-BNP 05/10 00:33 Order name: PT-INR 05/10 00:33 Order name: Troponin (emerg Dept Use Only) 05/10 00:37 Order name: Blood Culture Adult (2) 05/10 00:37 Order name: Lactate 05/10 00:44 Order name: ABG [facility] 03 00:44 Order name: ABG Arterial Blood Gas [facility] 05/10 01:39 Order name: Glucose, Ancillary Testing [facility] 05/10 00:33 Order name: EKG; Complete Time: 00:34 05/10 00:33 Order name: Cardiac monitoring; Complete Time: 00:39 05/10 00:33 Order name: EKG - Nurse/Tech; Complete Time: 00:39 05/10 00:33 Order name: IV Saline Lock; Complete Time: 00:39 05/10 00:33 Order name: Labs collected and sent; Complete Time: 00:39 05/10 00:33 Order name: O2 Per Protocol; Complete Time: 00:39 05/10 00:33 Order name: O2 Sat Monitoring; Complete Time: 00:39 05/10 00:40 Order name: Central Line Kit; Complete Time: 02:31 [facility] EC:33 Rate is 53 beats/min. Rhythm is irregular. QRS [place] is Normal. AL interval is normal. franklin QRS interval is normal. QT interval is normal. No Q waves. T waves are Normal. ST Segment is depressed in leads II, III, aVF, V1, V2, V3, V4, V5, V6. Interpreted by me. Reviewed by me. Administered Medications: Discontinued: Dopamine drip 5 mcg/kg/min - (DOPamine 400 mg, D5W 250 ml) IV at calculated rate continuous; Titrate to keep systolic blood pressure greater than 90mmHg 00:40 Drug: Dopamine drip 5 mcg/kg/min - (DOPamine 400 mg, D5W 250 ml) Route: IV; Rate: rr5 calculated rate; Site: left antecubital; 01:23 Follow up: Response: Other; rr5 01:23 Follow up: Response: Other; IV Status: Order to discontinue infusion; patient rr5 00:42 Drug: NS 0.9% 1000 ml Route: IV; Rate: 1 bolus; Site: left antecubital; rr5 01:23 Follow up: Response: Other; IV Status: Order to discontinue infusion; rr5 00:51 Drug: EPINEPHrine 0.1mg/mL 1:10,000 1 mg Route: IVP; Site: right femoral; rr5 00:52 Drug: Sodium Bicarbonate 1 amp Route: IVP; Site: right femoral; rr5 00:55 Drug: EPINEPHrine 0.1mg/mL 1:10,000 1 mg Route: IVP; Site: right femoral; rr5 00:55 Drug: Sodium Bicarbonate 1 amp Route: IVP; Site: right femoral; rr5 00:58 Drug: EPINEPHrine 0.1mg/mL 1:10,000 1 mg Route: IVP; Site: right femoral; rr5 01:02 Drug: Atropine 1 mg Route: IVP; Site: right femoral; rr5 01:02 Drug: EPINEPHrine 0.1mg/mL 1:10,000 1 mg Route: IVP; Site: right femoral; rr5 01:09 Drug: Atropine 1 mg Route: IVP; Site: right femoral; ea 01:10 Drug: EPINEPHrine 0.1mg/mL 1:10,000 1 mg Route: IVP; Site: right femoral; rr5 01:14 Drug: Epinephrine Drip - (EPINEPHrine (PF) 4 mg, Sodium Chloride 0.9% 250 ml) Route: rr5 IV; Rate: 5 mcg/kg/min; Site: right femoral; 01:14 Follow up: BP 40 / 22; Rate change 10 mcg/min rr5 01:23 Follow up: Response: Other; IV Status: Order to discontinue infusion; rr5 03:41 Not Given (Patient ): Zosyn 3.375 grams IVPB once over 60 mins; (mix in NS 100 rr5 mL) 03:41 Not Given (Patient ): Aspirin Suppository 300 mg AL once rr5 Point of Care Testing: Blood Glucose: 00:59 Blood Glucose: 264 mg/dL; rr5 Ranges: Critical Glucose Levels:Adult <50 mg/dl or >400 mg/dl <40 mg/dl or >180 mg/dl Disposition: 32 Critical Care:. franklin Disposition: Patient pronounced on 05/10/20 01:23 by Harman Sun. Impression: Chest pain, unspecified, Dyspnea, Respiratory failure, unspecified, Cardiac arrest. - Released to Home. Critical care time excluding procedures: 32 Critical care time: Bedside Care: 40 minutes, Consultation: 10 minutes, Family franklin Intervention: 10 minutes. Total time: 60 minutes Signatures: Dispatcher [employer] EDHarman Gates MD MD cha Antunez, Elena, RN RN Davion Herbert, RN RN rr5 Corrections: (The following items were deleted from the chart) 01:29 00:34 Chest Single View+RAD.RAD.BRZ ordered. EDMS EDMS 02:11 00:41 Head Brain Wo Cont+CT.RAD.BRZ ordered. EDMS EDMS 03:41 00:37 Urine Dipstick-Ancillary ordered. lala rr5 03:51 01:31 05/10/2020 01:31 Patient pronounced on 05/10/2020 at 01:23 by Harman Sun. lala Impression: Chest pain, unspecified; Dyspnea; Respiratory failure, unspecified; Cardiac arrest. Released to Home. franklin
[2020-05-10 05:18] VITALS: O2SAT 92
[2020-05-10 05:21] VITALS: TEMP 98
[2020-05-10 05:22] VITALS: BP 40/22
--- NOTE | 2020-05-10 22:26 | EKG ---
Test Date: 2020-05-10 Test Time: 01:21:40 Circuit Design Engineer: HUMA MEASUREMENT RESULTS: Intervals: Rate: 0 PA: QRSD: 0 QT: 0 QTc: 0 [place]: P: PA: QRS: 0 T: 0 INTERPRETIVE STATEMENTS: No QRS complexes found, no ECG analysis possible No previous ECG available for comparison Electronically Signed On 05-10-20 22:25:29 PORTFOLIO ADMINISTRATOR by Tanner Ambrocio
== END 2020-05-10 03:51 | disposition expired ==
LOC: ER 00:25
PROC: 06HT33Z Insertion of Infusion Device into Right Foot Vein, Percutaneous Approach (ICD-10-PCS; principal; 2020-05-10)
PROC: 5A12012 Performance of Cardiac Output, Single, Manual (ICD-10-PCS; 2020-05-10)
DX: I46.9 Cardiac arrest, cause unspecified (principal); I10 Essential (primary) hypertension; Z85.46 Personal history of malignant neoplasm of prostate; Z85.830 Personal history of malignant neoplasm of bone
CPT/HCPCS: 96365; 93005; 87040; 85025; 80048; 36415; 83735; 85610; 82947; 80076; 83605; 84484; 83880; 96375; 92950; 92953; 99291; 36556; J2543; J0171 ×2; J1265; J7060; J7030